=== PATIENT | male | born 1960 | race Caucasian/White ===

== ENCOUNTER 2022-08-26 11:12 | Inpatient (IN) | payer OTHER ==
[2022-08-26] MEDS ORDERED: SODIUM CHLORIDE 0.9% 1,000 ML IV STA (11:21)
[2022-08-26 12:03] LABS: Basophils % (A) 1 %; Eosinophils # (A) 0.1 k/uL (0-0.7); Eosinophils % (A) 2 %; HCT 38.5 % (39.0-53.0); HGB 12.9 gm/dL (13.0-17.5); Lymphocytes % (A) 19 %; MCH 36.5 pg (25.0-35.0); MCHC 33.6 g/dL (31.0-37.0); MCV 108.5 fL (80.0-100.0); Macrocytosis Marked; Mean Platelet Volume 7.8; Monocytes # (A) 0.6 k/uL (0-1.0); Monocytes % (A) 11 %; Neutrophils # (A) 3.4 k/uL (1.3-7.7); Neutrophils % (A) 64 %; Platelet Count 272 k/uL (150-450); RBC 3.55 m/uL (4.30-5.90); RDW 15.2 % (11.5-15.5); WBC 5.3 k/uL (3.8-10.6)
[2022-08-26 12:07] LABS: Appearance,Urine Clear (Clear); Bilirubin,Urine Negative (Negative); Blood,Urine Negative (Negative); Color,Urine Yellow; Glucose,Urine (UA) Negative (Negative); Ketones,Urine Negative (Negative); Leukocyte Esterase,Urine Negative (Negative); Nitrite,Urine Negative (Negative); PH, Urine 5.5 (5.0-8.0); Protein,Urine Negative (Negative); Specific Gravity,Urine 1.021 (1.001-1.035)
[2022-08-26 12:14] LABS: ALT 134 U/L (4-49); AST 178 U/L (17-59); African American GFR (CKD) >90 (>60 ml/min/1.73 sqM); Albumin 4.2 g/dL (3.5-5.0); Alkaline Phosphatase 83 U/L (38-126); Anion Gap 6 mmol/L; Blood Urea Nitrogen 15 mg/dL (9-20); Carbon Dioxide 30 mmol/L (22-30); Chloride 102 mmol/L (98-107); Glucose 74 mg/dL (74-99); Non-African American GFR(CKD) >90 (>60 ml/min/1.73 sqM); Potassium 3.7 mmol/L (3.5-5.1); Sodium 138 mmol/L (137-145); Total Bilirubin 0.7 mg/dL (0.2-1.3)
--- NOTE | 2022-08-26 12:23 | XR ---
EXAMINATION TYPE: XR chest 1V portable DATE OF EXAM: 08/26/2022 Comparison: None Clinical History: 62-year-old male dizzy Findings: Heart borderline to mildly enlarged. Aorta and pulmonary vasculature within normal limits. No consoli dation or pleural effusion seen. Impression: Borderline to mild cardiomegaly. Otherwise, no definite acute process.
--- NOTE | 2022-08-26 12:27 | CT ---
EXAMINATION TYPE: CT brain wo con DATE OF EXAM: 08/26/2022 COMPARISON: None HISTORY: 62-year-old male Weakness, with dizziness, blood pressure issues TECHNIQUE: Examination was done in axial plane without intravenous contrast. Coronal and sagittal r econstructions performed. CT DLP: 1170.4 mGycm Automated exposure control for dose reduction was used. FINDINGS: There is no evidence of acute intracranial hemorrhage, acute ischemic changes, mass, mass-effect, or extra-axial fluid collection. There is no effacement of cerebral sulci or basal subarachnoid cister ns. There is no hydrocephalus. There is no midline shift. Barrett-white matter distinction is preserv ed. Moderate volume loss overlying the bilateral cerebral convexities. Secondary mild ventricular promine nce. Mild patchy white matter hypodensities in the cerebral hemispheres. Limited assessment posterior cranial fossa due to skull base artifacts. No gross abnormal ECG. Rightward nasal septal deviation. Mastoid air cells and paranasal sinuses otherwise clear. Orbits and globes are intact. IMPRESSION: Moderate volume loss overlying the bilateral cerebral convexities. Mild burden of chronic small vesse l ischemic disease. No acute intracranial abnormality seen.
--- NOTE | 2022-08-26 14:20 | ED ---
Dizziness HPI - General Chief Complaint: Dizziness Stated Complaint: Blood Pressure Problems Time Seen by Provider: 08/26/22 11:15 Source: patient Mode of arrival: EMS Limitations: no limitations - History of Present Illness Initial Comments: Patient complains of lightheadedness and near-syncope. His symptoms come and go but they are getting worse. He has no chest pain or pressure or tightness. He has no nausea or vomiting. He has no palpitations. He has no focal weakness. He wasn't doing anything when this began. Nothing specifically makes the symptoms better or worse. - Related Data Allergies Allergy/AdvReac Type Severity Reaction Status Date / Time No Known Allergies Allergy Verified 08/26/22 11:21 Review of Systems ROS Statement: Those systems with pertinent positive or pertinent negative responses have been documented in the HPI. ROS Other: All systems not noted in ROS Statement are negative. Past Medical History Past Medical History: Hyperlipidemia, Hypertension, Seizure Disorder History of Any Multi-Drug Resistant Organisms: None Reported Additional Past Surgical History / Comment(s): heart ablation Past Psychological History: No Psychological Hx Reported Smoking Status: Current every day smoker Past Alcohol Use History: Abuse Past Drug Use History: None Reported General Exam Limitations: no limitations General appearance: alert, in no apparent distress Head exam: Present: atraumatic, normocephalic, normal inspection Eye exam: Present: normal appearance, PERRL, EOMI. Absent: scleral icterus, c onjunctival injection, periorbital swelling ENT exam: Present: normal exam, mucous membranes moist Neck exam: Present: normal inspection. Absent: tenderness, meningismus, lymphadenopathy Respiratory exam: Present: normal lung sounds bilaterally. Absent: respiratory distress, wheezes, rales, rhonchi, stridor Cardiovascular Exam: Present: regular rate, normal rhythm, normal heart sounds. Absent: systolic murmur, diastolic murmur, rubs, gallop, clicks GI/Abdominal exam: Present: soft, normal bowel sounds. Absent: distended, tenderness, guarding, rebound, rigid Extremities exam: Present: normal inspection, full ROM, normal capillary refill. Absent: tenderness, pedal edema, joint swelling, calf tenderness Back exam: Present: normal inspection Neurological exam: Present: alert, oriented X3, CN II-XII intact Psychiatric exam: Present: normal affect, normal mood Skin exam: Present: warm, dry, intact, normal color. Absent: rash Course Vital Signs 08/26/22 08/26/22 11:18 11:41 Temperature 98 F Pulse Rate 48 L 48 L Respiratory 16 20 Rate Blood Pressure 124/84 124/68 O2 Sat by Pulse 98 98 Oximetry EKG Findings - EKG Comments: EKG Findings:: Twelve-lead EKG interpreted by me shows ventricular rate 50 bpm, normal AR interval, normal QRS complex, no ST elevation or depression, interpreted by me as sinus bradycardia. Medical Decision Making - Medical Decision Making Patient presents with lightheadedness and near syncope. 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 Laboratory studies are interpreted by me as normal left lites, normal kidney functioning, normal CBC. CT of the brain was independently reviewed and read by me showing no acute intracranial bleed or mass. 1 view chest x-ray was independently reviewed and read by me showing no acute pneumonia. I reevaluated patient. He is very bradycardic. He has intermittent episodes of lightheadedness. I have placed a consultation to cardiology. Patient will be admitted to the hospital. - Lab Data Result diagrams: 08/26/22 11:40 08/26/22 11:40 Lab Results 08/26/22 08/26/22 08/26/22 Range/Units 11:40 11:40 11:40 WBC 5.3 (3.8-10.6) k/uL RBC 3.55 L (4.30-5.90) m/uL Hgb 12.9 L (13.0-17.5) gm/dL Hct 38.5 L (39.0-53.0) % MCV 108.5 H (80.0-100.0) fL MCH 36.5 H (25.0-35.0) pg MCHC 33.6 (31.0-37.0) g/dL RDW 15.2 (11.5-15.5) % Plt Count 272 (150-450) k/uL MPV 7.8 Neutrophils % 64 % Lymphocytes % 19 % Monocytes % 11 % Eosinophils % 2 % Basophils % 1 % Neutrophils # 3.4 (1.3-7.7) k/uL Lymphocytes # 1.0 (1.0-4.8) k/uL Monocytes # 0.6 (0-1.0) k/uL Eosinophils # 0.1 (0-0.7) k/uL Basophils # 0.0 (0-0.2) k/uL Macrocytosis Marked A Sodium 138 (137-145) mmol/L Potassium 3.7 (3.5-5.1) mmol/L Chloride 102 (98-107) mmol/L Carbon Dioxide 30 (22-30) mmol/L Anion Gap 6 mmol/L BUN 15 (9-20) mg/dL Creatinine 0.59 L (0.66-1.25) mg/dL Est GFR (CKD-EPI)AfAm >90 (>60 ml/min/1.73 sqM) Est GFR (CKD-EPI)NonAf >90 (>60 ml/min/1.73 sqM) Glucose 74 (74-99) mg/dL Calcium 9.0 (8.4-10.2) mg/dL Total Bilirubin 0.7 (0.2-1.3) mg/dL AST 178 H (17-59) U/L ALT 134 H (4-49) U/L Alkaline Phosphatase 83 (38-126) U/L Troponin I <0.012 (0.000-0.034) ng/mL Total Protein 7.0 (6.3-8.2) g/dL Albumin 4.2 (3.5-5.0) g/dL Urine Color Urine Appearance (Clear) Urine pH (5.0-8.0) Ur Specific [place] (1.001-1.035) Urine Protein (Negative) Urine Glucose (UA) (Negative) Urine Ketones (Negative) Urine Blood (Negative) Urine Nitrite (Negative) Urine Bilirubin (Negative) Urine Urobilinogen (<2.0) mg/dL Ur Leukocyte Esterase (Negative) 08/26/22 Range/Units 11:48 WBC (3.8-10.6) k/uL RBC (4.30-5.90) m/uL Hgb (13.0-17.5) gm/dL Hct (39.0-53.0) % MCV (80.0-100.0) fL MCH (25.0-35.0) pg MCHC (31.0-37.0) g/dL RDW (11.5-15.5) % Plt Count (150-450) k/uL MPV Neutrophils % % Lymphocytes % % Monocytes % % Eosinophils % % Basophils % % Neutrophils # (1.3-7.7) k/uL Lymphocytes # (1.0-4.8) k/uL Monocytes # (0-1.0) k/uL Eosinophils # (0-0.7) k/uL Basophils # (0-0.2) k/uL Macrocytosis Sodium (137-145) mmol/L Potassium (3.5-5.1) mmol/L Chloride (98-107) mmol/L Carbon Dioxide (22-30) mmol/L Anion Gap mmol/L BUN (9-20) mg/dL Creatinine (0.66-1.25) mg/dL Est GFR (CKD-EPI)AfAm (>60 ml/min/1.73 sqM) Est GFR (CKD-EPI)NonAf (>60 ml/min/1.73 sqM) Glucose (74-99) mg/dL Calcium (8.4-10.2) mg/dL Total Bilirubin (0.2-1.3) mg/dL AST (17-59) U/L ALT (4-49) U/L Alkaline Phosphatase (38-126) U/L Troponin I (0.000-0.034) ng/mL Total Protein (6.3-8.2) g/dL Albumin (3.5-5.0) g/dL Urine Color Yellow Urine Appearance Clear (Clear) Urine pH 5.5 (5.0-8.0) Ur Specific [place] 1.021 (1.001-1.035) Urine Protein Negative (Negative) Urine Glucose (UA) Negative (Negative) Urine Ketones Negative (Negative) Urine Blood Negative (Negative) Urine Nitrite Negative (Negative) Urine Bilirubin Negative (Negative) Urine Urobilinogen 2.0 (<2.0) mg/dL Ur Leukocyte Esterase Negative (Negative) Disposition Clinical Impression: Bradycardia Disposition: ADMITTED IP TO THIS HOSP Condition: Fair Is patient prescribed a controlled substance at d/c from ED?: No Referrals: Nonstaff,Physician [Primary Care Provider] - 1-2 days
[2022-08-26] MEDS ORDERED: NALOXONE 0.4 MG/ML 1 ML VIAL IV PRN (14:25)
[2022-08-26] MEDS ORDERED: ONDANSETRON 4 MG/2 ML VIAL IVP PRN (14:25)
[2022-08-26] MEDS ORDERED: CALCIUM CARBONATE 500 MG CHEWABLE PO PRN (14:25)
[2022-08-26] MEDS ORDERED: MAG HYDROX/AL HYDROX/SIMETH 30 ML CUP PO PRN (17:53)
[2022-08-26] MEDS ORDERED: ONDANSETRON 4 MG TAB PO PRN (17:53)
[2022-08-26] MEDS ORDERED: hydrALAZINE HCL 20 MG/ML 1 ML VIAL IVP PRN (18:06)
[2022-08-26] MEDS: SODIUM CHLORIDE 0.9% 1,000 ML IV SCH (18:45)
[2022-08-26] MEDS: DILTIAZEM ORAL 60 MG TAB PO SCH (21:15)
[2022-08-26] MEDS: QUEtiapine 25 MG TAB PO SCH (21:16)
[2022-08-26] MEDS: ATORVASTATIN 20 MG TAB PO SCH (21:16)
[2022-08-27] MEDS: SODIUM CHLORIDE 0.9% 1,000 ML IV SCH ×2 (04:54→17:35)
[2022-08-27] MEDS: DILTIAZEM ORAL 60 MG TAB PO SCH ×3 (09:10→09:25)
[2022-08-27] MEDS: ESCITALOPRAM 20 MG TAB PO SCH (09:17)
[2022-08-27] MEDS: FOLIC ACID 1 MG TAB PO SCH (09:17)
[2022-08-27] MEDS: THIAMINE 100 MG TAB PO SCH (09:17)
[2022-08-27] MEDS: MULTIVITAMINS, THERA 1 EACH TAB PO SCH (09:17)
--- NOTE | 2022-08-27 11:29 | P.CRDCN ---
History of Present Illness Consult date: 08/27/22 Reason for Consult (text): Bradycardia, hypertension History of present illness: History of present illness: This is a 62-year-old male with past history of SVT status post ablation done at [facility] with subsequent episode of SVT 2, hypertension, alcohol abuse. We have been asked to see the patient regarding hypertension and bradycardia. Patient is currently at [place] for alcohol rehabilitation and lives in the [facility]. His last oral intake was 3 weeks ago. Patient states that around 3:30 in the morning he had a headache and went up to the nursing desk asked for his blood pressure to be checked which came back at 157/111. He was given Catapres 0.2 mg and Motrin and went back to sleep. He woke up again at 9:30 and he was feeling dizzy and disoriented and his blood pressure was 80/50. He was then sent into [facility] emergency center for evaluation. Patient also states he has had some left-sided chest pain that he feels when he takes a deep breath and is positional. He denies any injury to his chest. Telemetry is been a sinus rhythm 42-68. Blood pressure this morning is well controlled 135/87. Orthostatic vital signs negative. Patient quit smoking 27 years ago. His last alcohol intake was 3 weeks ago. EKG sinus bradycardia at 50 bpm Chest x-ray: Borderline to mild cardiomegaly. No definite acute process WBC 5.3, hemoglobin 12.9, platelet count 272. Potassium 3.7, BUN 15 and creatinine 0.5. Troponin negative 3. TSH 1.450. Home cardiac medications atorvastatin 20 mg at bedtime, clonidine 0.10.3 mg every 4 hours when necessary, Cardizem 60 mg twice daily, hydrochlorothiazide 12.5 mg before breakfast Review Of Systems: At the time of my evaluation: Constitutional: No fever, no chills. No weakness, fatigue or lethargy. EENT: No headache. No dizziness. Lungs: No shortness of breath, cough, no sputum production. No wheezing. Cardiovascular: No chest pain, no lower extremity edema. No palpitations. No paroxysmal nocturnal dyspnea. No orthopnea. No lightheadedness or dizziness. No syncopal episodes. Abdominal: No abdominal pain. No nausea, vomiting. No diarrhea. No constipation. No bloody or tarry stools. Musculoskeletal: No myalgias. No muscle weakness, no frequent falls. No back pain. No neck pain. Integumentary: No wounds. No rash. No unusual bruising. Neurologic: No aphasia. No facial droop. No change in mentation. No head injury. No headache. Psychiatric: No depression. No anxiety. Endocrine: No abnormal blood sugars. Physical examination: Gen: This is a 62-year-old male patient resting in the bed and appears to be comfortable and in no acute distress VS: reviewed HEENT: Head is atraumatic, normocephalic. Pupils equal, round. Sclerae is anicteric. NECK: Supple. No JVD. No lymphadenopathy. No thyromegaly. LUNGS: Clear to auscultation. No wheezes or rhonchi. No intercostal retractions. HEART: Regular rate and rhythm. No murmur. ABDOMEN: Soft. Bowel sounds are present. No masses. No tenderness. EXTREMITIES: No pedal edema. No calf tenderness. NEUROLOGICAL: Patient is awake, alert and oriented x3. Cranial nerves 2 through 12 are grossly intact. Assessment: Hypotension following Catapres administration Bradycardia, asymptomatic SVT status post ablation 2 years ago at [facility] Hyperlipidemia Alcohol abuse Plan: Change to Cardizem 30 mg 3 times daily Continue other cardiac medications Obtain 2-D echocardiogram and Doppler study to assess cardiac structure and function Further recommendations to follow based upon clinical course Thank you kindly for this consultation. Nurse practitioner note has been reviewed, I agree with documented findings and plan of care. Patient was seen and examined. Past Medical History Past Medical History: Hyperlipidemia, Hypertension, Seizure Disorder, Sleep Apnea/CPAP/BIPAP History of Any Multi-Drug Resistant Organisms: None Reported Past Surgical History: Tonsillectomy Additional Past Surgical History / Comment(s): heart ablation Past Anesthesia/Blood Transfusion Reactions: No Reported Reaction Smoking Status: Former smoker Medications and Allergies Home Medications Medication Instructions Recorded Confirmed Type Acetaminophen Tab [Tylenol] 650 mg PO Q4H PRN 08/26/22 08/26/22 History Atorvastatin [Lipitor] 20 mg PO HS 08/26/22 08/26/22 History Calcium Carb/Mag Ox/Zinc Sulf 1 tab PO TID PRN 08/26/22 08/26/22 History [Etm-Kml-Cnxe 334-134-5 mg Tab] Chlorpheniramine Maleate 4 mg PO Q4H PRN 08/26/22 08/26/22 History [Chlor-Trimeton] Escitalopram [Lexapro] 20 mg PO DAILY 08/26/22 08/26/22 History Folic Acid 1 mg PO DAILY 08/26/22 08/26/22 History Ibuprofen [Motrin Ib] 600 mg PO Q6H PRN 08/26/22 08/26/22 History LORazepam [Ativan] See Taper PO DIRECTED 08/26/22 08/26/22 History Multivitamins, Thera [Multivitamin 1 tab PO DAILY 08/26/22 08/26/22 History (formulary)] Mylanta 30 ml PO Q4H PRN 08/26/22 08/26/22 History QUEtiapine FUMARATE [SEROquel] 25 mg PO HS 08/26/22 08/26/22 History Thiamine [Vitamin B-1] 100 mg PO DAILY 08/26/22 08/26/22 History cloNIDine HCL [Catapres] 0.1 - 0.3 mg PO Q4H PRN 08/26/22 08/26/22 History dilTIAZem HCL 60 mg PO BID 08/26/22 08/26/22 History hydroCHLOROthiazide 12.5 mg PO AC-BRKFST 08/26/22 08/26/22 History ondansetron HCL [Zofran] 8 mg PO Q6H PRN 08/26/22 08/26/22 History Allergies Allergy/AdvReac Type Severity Reaction Status Date / Time No Known Allergies Allergy Verified 08/26/22 14:35 Physical Exam Vitals: Vital Signs Temp Pulse Pulse Resp BP BP BP 08/27/22 06:13 146/94 152/93 08/27/22 04:00 97.7 F 53 L 15 08/27/22 00:00 97.6 F 56 L 15 08/26/22 21:31 08/26/22 21:25 98.1 F 65 16 08/26/22 21:09 98.1 F 65 16 08/26/22 20:25 48 L 16 165/89 08/26/22 15:21 42 L 16 130/58 08/26/22 14:21 50 L 16 138/58 08/26/22 13:21 68 16 142/68 08/26/22 12:21 48 L 16 135/68 08/26/22 11:41 48 L 20 124/68 08/26/22 11:18 98 F 48 L 16 124/84 BP Pulse Ox FiO2 08/27/22 06:13 135/87 08/27/22 04:00 141/89 96 08/27/22 00:00 113/69 98 08/26/22 21:31 98 21 08/26/22 21:25 153/97 96 08/26/22 21:09 153/97 96 08/26/22 20:25 98 08/26/22 15:21 98 08/26/22 14:21 98 08/26/22 13:21 98 08/26/22 12:21 98 08/26/22 11:41 98 08/26/22 11:18 98 Intake and Output 08/26/22 08/27/22 08/27/22 22:59 06:59 14:59 Intake Total 1440 Output Total 540 Balance -540 1440 Intake: Intake, IV Titration 900 Amount Sodium Chloride 0.9% 1, 900 000 ml @ 75 mls/hr IV . [id number] [facility] Rx#:[id number] Oral 540 Output: Urine 540 Other: Voiding Method Toilet Toilet Weight 73.482 kg Results 08/26/22 11:40 08/26/22 11:40 Cardiac Enzymes 08/26/22 08/26/22 08/26/22 Range/Units 11:40 11:40 15:50 AST 178 H (17-59) U/L Troponin I <0.012 <0.012 (0.000-0.034) ng/mL 08/26/22 Range/Units 18:55 AST (17-59) U/L Troponin I <0.012 (0.000-0.034) ng/mL CBC 08/26/22 Range/Units 11:40 WBC 5.3 (3.8-10.6) k/uL RBC 3.55 L (4.30-5.90) m/uL Hgb 12.9 L (13.0-17.5) gm/dL Hct 38.5 L (39.0-53.0) % Plt Count 272 (150-450) k/uL Comprehensive Metabolic Panel 08/26/22 Range/Units 11:40 Sodium 138 (137-145) mmol/L Potassium 3.7 (3.5-5.1) mmol/L Chloride 102 (98-107) mmol/L Carbon Dioxide 30 (22-30) mmol/L BUN 15 (9-20) mg/dL Creatinine 0.59 L (0.66-1.25) mg/dL Glucose 74 (74-99) mg/dL Calcium 9.0 (8.4-10.2) mg/dL AST 178 H (17-59) U/L ALT 134 H (4-49) U/L Alkaline Phosphatase 83 (38-126) U/L Total Protein 7.0 (6.3-8.2) g/dL Albumin 4.2 (3.5-5.0) g/dL Current Medications Generic Name Dose Route Start Last Admin Trade Name Freq PRN Reason Stop Dose Admin Acetaminophen 650 mg 08/26/22 14:25 Acetaminophen Tab 325 Mg Tab PO Q6HR PRN Mild Pain or Fever > 100.5 Al Hydroxide/Mg Hydroxide 30 ml 08/26/22 17:53 Mag Hydrox/Al Hydrox/Simeth 30 Ml Cup PO Q4H PRN GI Upset Atorvastatin Calcium 20 mg 08/26/22 21:00 08/26/22 21:16 Atorvastatin 20 Mg Tab PO 20 mg HS [facility] Administration Calcium Carbonate/Glycine 1,000 mg 08/26/22 14:25 Calcium Carbonate 500 Mg Chewable PO Q4HR PRN Dyspepsia Diltiazem HCl 60 mg 08/26/22 21:00 08/26/22 21:15 Diltiazem Oral 60 Mg Tab PO 60 mg BID VERONA Administration Escitalopram Oxalate 20 mg 08/27/22 09:00 Escitalopram 20 Mg Tab PO DAILY [facility] Folic Acid 1 mg 08/27/22 09:00 Folic Acid 1 Mg Tab PO DAILY [facility] Hydralazine HCl 10 mg 08/26/22 18:06 Hydralazine Hcl 20 Mg/Ml 1 Ml Vial IVP Q4HR PRN Blood Pressure - High Sodium Chloride 1,000 mls @ 75 mls/hr 08/26/22 15:30 08/27/22 04:54 Saline 0.9% IV Not Given .[id number] [facility] Multivitamins 1 each 08/27/22 09:00 Multivitamins, Thera 1 Each Tab PO DAILY [facility] Naloxone HCl 0.2 mg 08/26/22 14:25 Naloxone 0.4 Mg/Ml 1 Ml Vial IV Q2M PRN Opioid Reversal Ondansetron HCl 4 mg 08/26/22 14:25 Ondansetron 4 Mg/2 Ml Vial IVP Q8HR PRN Nausea And Vomiting Ondansetron HCl 8 mg 08/26/22 17:53 Ondansetron 4 Mg Tab PO Q6H PRN Nausea Quetiapine Fumarate 25 mg 08/26/22 21:00 08/26/22 21:16 Quetiapine 25 Mg Tab PO 25 mg HS [facility] Administration Temazepam 15 mg 08/26/22 14:25 Temazepam 15 Mg Cap PO HS PRN Insomnia Thiamine HCl 100 mg 08/27/22 09:00 Thiamine 100 Mg Tab PO DAILY [facility] Intake and Output 08/26/22 08/27/22 08/27/22 22:59 06:59 14:59 Intake Total 1440 Output Total 540 Balance -540 1440 Intake: Intake, IV Titration 900 Amount Sodium Chloride 0.9% 1, 900 000 ml @ 75 mls/hr IV . [id number] [facility] Rx#:[id number] Oral 540 Output: Urine 540 Other: Voiding Method Toilet Toilet Weight 73.482 kg 08/26/22 11:40 08/26/22 11:40
--- NOTE | 2022-08-27 11:49 | P.CNNES ---
History of Present Illness Consult date: 08/27/22 Requesting physician: Shilo Rapp Reason for Consult: abnormal CT, near syncope History of Present Illness: This is a 62-year-old gentleman who presented emergency department because of lightheadedness and near syncope. Patient stated that he was at [facility] because of history of significant alcohol use. He stated that his blood pressure was elevated and then he does not remember the number and he was given medication then later his blood pressure was rechecked and it was 80s over 50s and he felt he was off. He denies passing out. Denies any headache, focal weakness, numbness. He does have history of significant alcohol use but he stated that the his mother feels he has more issues with his drinking. Denies any seizure-like activity that was reported to him yesterday. Denies any tongue bite, urinary bowel incontinence. Denies of any headache. Home medication some of him is potassium 60 mg a tablet twice a day, Lexapro, Seroquel. Of note he stated that he has only one seizure-like activity in the past and that was due to medication withdrawal since he did not have medication for one month and that was waiting in the past. Some other workup during this hospital visit consisted of: Is afebrile during his hospital visit Heart rates is high 40's to 50s Orthostatic vitals is negative. Supine blood pressure is 135/87, sitting is 146/94 and standing is 152 over the 93. His chemistry panel is 18 ALT is elevated mildly of 178 AST and ALT 134. Otherwise the patient's serum glucose, calcium, sodium and TSH are within normal limits. CT of the head is reported as moderate volume loss overlying the bilateral cerebral convexity. Mild burden of chronic small vessel ischemic disease. No acute intracranial abnormality seen. I personally reviewed the CT of the head and there is no acute or subacute ischemia and there is no mass effect and there is no bleed. Patient has bilateral frontal atrophy and questionably the more atrophy than age. EKG is reported as sinus bradycardia. Left axis deviation. Review of Systems Review of system: The 12 point system was reviewed and apparent positive and negative per HPI. Past Medical History Past Medical History: Hyperlipidemia, Hypertension, Seizure Disorder, Sleep Apnea/CPAP/BIPAP History of Any Multi-Drug Resistant Organisms: None Reported Past Surgical History: Tonsillectomy Additional Past Surgical History / Comment(s): heart ablation Past Anesthesia/Blood Transfusion Reactions: No Reported Reaction Smoking Status: Former smoker Medications and Allergies Home Medications Medication Instructions Recorded Confirmed Type Acetaminophen Tab [Tylenol] 650 mg PO Q4H PRN 08/26/22 08/26/22 History Atorvastatin [Lipitor] 20 mg PO HS 08/26/22 08/26/22 History Calcium Carb/Mag Ox/Zinc Sulf 1 tab PO TID PRN 08/26/22 08/26/22 History [Rgl-Hrc-Fcdm 334-134-5 mg Tab] Chlorpheniramine Maleate 4 mg PO Q4H PRN 08/26/22 08/26/22 History [Chlor-Trimeton] Escitalopram [Lexapro] 20 mg PO DAILY 08/26/22 08/26/22 History Folic Acid 1 mg PO DAILY 08/26/22 08/26/22 History Ibuprofen [Motrin Ib] 600 mg PO Q6H PRN 08/26/22 08/26/22 History LORazepam [Ativan] See Taper PO DIRECTED 08/26/22 08/26/22 History Multivitamins, Thera [Multivitamin 1 tab PO DAILY 08/26/22 08/26/22 History (formulary)] Mylanta 30 ml PO Q4H PRN 08/26/22 08/26/22 History QUEtiapine FUMARATE [SEROquel] 25 mg PO HS 08/26/22 08/26/22 History Thiamine [Vitamin B-1] 100 mg PO DAILY 08/26/22 08/26/22 History cloNIDine HCL [Catapres] 0.1 - 0.3 mg PO Q4H PRN 08/26/22 08/26/22 History dilTIAZem HCL 60 mg PO BID 08/26/22 08/26/22 History hydroCHLOROthiazide 12.5 mg PO AC-BRKFST 08/26/22 08/26/22 History ondansetron HCL [Zofran] 8 mg PO Q6H PRN 08/26/22 08/26/22 History Allergies Allergy/AdvReac Type Severity Reaction Status Date / Time No Known Allergies Allergy Verified 08/26/22 14:35 Physical Examination - Vital Signs Vital Signs: Vital Signs Temp Pulse Pulse Resp BP BP BP 08/27/22 09:09 98.2 F 54 L 16 158/93 08/27/22 06:13 146/94 152/93 08/27/22 04:00 97.7 F 53 L 15 08/27/22 00:00 97.6 F 56 L 15 08/26/22 21:31 08/26/22 21:25 98.1 F 65 16 08/26/22 21:09 98.1 F 65 16 08/26/22 20:25 48 L 16 165/89 08/26/22 15:21 42 L 16 130/58 08/26/22 14:21 50 L 16 138/58 08/26/22 13:21 68 16 142/68 08/26/22 12:21 48 L 16 135/68 08/26/22 11:41 48 L 20 124/68 08/26/22 11:18 98 F 48 L 16 124/84 BP Pulse Ox FiO2 08/27/22 09:09 98 08/27/22 06:13 135/87 08/27/22 04:00 141/89 96 08/27/22 00:00 113/69 98 08/26/22 21:31 98 21 08/26/22 21:25 153/97 96 08/26/22 21:09 153/97 96 08/26/22 20:25 98 08/26/22 15:21 98 08/26/22 14:21 98 08/26/22 13:21 98 08/26/22 12:21 98 08/26/22 11:41 98 08/26/22 11:18 98 Intake and Output 08/26/22 08/27/22 08/27/22 22:59 06:59 14:59 Intake Total 1440 Output Total 540 Balance -540 1440 Intake: Intake, IV Titration 900 Amount Sodium Chloride 0.9% 1, 900 000 ml @ 75 mls/hr IV . [id number] [facility] Rx#:[id number] Oral 540 Output: Urine 540 Other: Voiding Method Toilet Toilet Weight 73.482 kg GENERAL: The patient is lying in bed and is not in acute distress. CHEST: The heart rate is regular rate rhythm. No murmurs to auscultation. LUNG: Clear to auscultation bilaterally no wheezing noted throughout. Not labored breathing. ABDOMEN/GI: Bowel sounds present in all 4 quadrants. No tenderness to palpation throughout. NEUROLOGICAL: Higher mental function: The patient is awake, alert, oriented to self, place and time. Patient is following commands. No aphasia and no neglect. Cranial nerves: The pupils are round, equal and reactive to light and accommo dation. Visual gallardo are full to confrontation throughout. Extraocular movement is intact no nystagmus is noted. Facial sensation is normal to touch throughout. The facial strength is normal throughout. Hearing is normal bilaterally to hand rub. Tongue is midline and moved [id number] without any difficulty. No dysarthria is noted. Shoulder shrug is normal bilaterally. Motor: The strength is 5 over 5 throughout. Normal tone and bulk. Cerebellum: Normal finger to nose bilaterally. Sensation: Sensation is normal to touch throughout. Reflexes (right/left): 2+ throughout. Plantars are downgoing bilaterally. Results - Laboratory Findings CBC and BMP: 08/26/22 11:40 08/26/22 11:40 Abnormal Lab Findings: Abnormal Labs 08/26/22 08/26/22 11:40 11:40 RBC 3.55 L Hgb 12.9 L Hct 38.5 L MCV 108.5 H MCH 36.5 H Macrocytosis Marked A Creatinine 0.59 L AST 178 H ALT 134 H Assessment and Plan Assessment: Near syncope and it appears possibly due to his hypotensive episode (at [facility] heart blood pressure was 80's/50's and thinks was given medication according to him since it was elevated) and possible symptomatic bradycardia Possibly symptomatic bradycardia History of reported seizures disorder one episode and stated due to medication withdrawal. Hypertension Hyperlipidemia Alcohol use Plan: I ordered a routine EEG to rule out any active seizures or epileptiform discharges. CT of the head is reported as moderate volume loss overlying the bilateral cerebral convexity. Mild burden of chronic small vessel ischemic disease. No acute intracranial abnormality seen. I personally reviewed the CT of the head and there is no acute or subacute ischemia and there is no mass effect and there is no bleed. Patient has bilateral frontal atrophy and questionably the more atrophy than age. There are many factors possibly that can cause atrophy and one is due to his significant alcohol use. Workup as outpatient neurologist. Nothing urgent as an inpatient. 2-D echo is a ordered and cardiology is consulted Continue thiamine 100mg daily. We'll defer the rest of medical management to the primary team The plan is discussed with patient and his nurse. Thank you for the consultation Time with Patient: Greater than 30
[2022-08-27] MEDS: DILTIAZEM ORAL 30 MG TAB PO SCH ×3 (12:11→21:58)
--- NOTE | 2022-08-27 19:51 | EEG ---
ELECTROENCEPHALOGRAM REPORT CLINICAL HISTORY: This is a 62-year-old gentleman with near syncope at an outside facility. The video EEG is obtained to evaluate for seizure epileptiform activity. RELEVANT MEDICATIONS: The patient is not on any antiepileptic drugs. EEG TYPE: A routine 21-channel EEG is performed with video using the 10/20 electrode placement system. DESCRIPTION: Wakefulness is only obtained. During awake state, the posterior-dominant rhythm consists of uan-bo-ebhrgveg voltage of 8.5 to 9 hertz activity that is well modulated and well sustained. There is no physiological stage 2 sleep architecture. There is no focal slowing. Interictal and ictal is none. ACTIVATION PROCEDURE: Photic stimulation did not evoke a posterior driving response. There is no abnormality during the photic stimulation. Hyperventilation is not performed. CLINICAL INTERPRETATION: This is a normal routine EEG. There is no focal slowing, epileptiform discharge or seizure on the EEG. Clinical correlation is recommended. MMMIGUEL / TESSAN: [id number] /
[2022-08-27] MEDS: ATORVASTATIN 20 MG TAB PO SCH (20:18)
[2022-08-27] MEDS: QUEtiapine 25 MG TAB PO SCH (20:18)
--- NOTE | 2022-08-28 02:57 | PN ---
PROGRESS NOTE SUBJECTIVE: A 62-year-old white male. Neurology saw him. Cardiology saw him. We stopped his Catapres last night. Continues on the beta blockers. Heart rate and blood pressures are more stable now. He is less dizzy, pleuritic-type chest pain. OBJECTIVE: VITAL SIGNS: Temperature 98.2, pulse 58 to 61, blood pressure is 140s to 160s over 80s to 90s. CARDIOVASCULAR: S1, S2. LUNGS: Transmitted upper sounds. HEMATOLOGY: Negative Homans. PSYCHIATRIC: Fair mood and affect. LABORATORY DATA: Labs reviewed and include, hemoglobin is 10.9, creatinine is 0.59. Liver enzymes elevated at 170, 134. Alkaline phosphatase is negative. Troponins are negative x3. Elevated liver enzymes of unclear etiology. Right-sided chest pain. EEG, Neurology, Cardiology has been consulted. Please see further orders check hepatitis panel. Prognosis guarded. MMODL / IJN: [id number] /
[2022-08-28 06:53] LABS: Basophils % (A) 1 %; Eosinophils # (A) 0.1 k/uL (0-0.7); Eosinophils % (A) 3 %; HCT 39.1 % (39.0-53.0); HGB 13.4 gm/dL (13.0-17.5); Lymphocytes # (A) 1.3 k/uL (1.0-4.8); Lymphocytes % (A) 26 %; MCH 35.7 pg (25.0-35.0); MCHC 34.3 g/dL (31.0-37.0); MCV 104.1 fL (80.0-100.0); Macrocytosis Slight; Mean Platelet Volume 7.8; Monocytes # (A) 0.6 k/uL (0-1.0); Monocytes % (A) 13 %; Neutrophils # (A) 2.7 k/uL (1.3-7.7); Neutrophils % (A) 55 %; Platelet Count 245 k/uL (150-450); RBC 3.76 m/uL (4.30-5.90); RDW 14.3 % (11.5-15.5); WBC 4.9 k/uL (3.8-10.6)
[2022-08-28 07:04] LABS: ALT 99 U/L (4-49); AST 105 U/L (17-59); African American GFR (CKD) >90 (>60 ml/min/1.73 sqM); Albumin 3.9 g/dL (3.5-5.0); Alkaline Phosphatase 81 U/L (38-126); Anion Gap 4 mmol/L; Blood Urea Nitrogen 10 mg/dL (9-20); Calcium 8.8 mg/dL (8.4-10.2); Carbon Dioxide 29 mmol/L (22-30); Chloride 105 mmol/L (98-107); Glucose 86 mg/dL (74-99); Non-African American GFR(CKD) >90 (>60 ml/min/1.73 sqM); Potassium 3.6 mmol/L (3.5-5.1); Sodium 138 mmol/L (137-145); Total Bilirubin 0.9 mg/dL (0.2-1.3); Total Protein 6.6 g/dL (6.3-8.2)
[2022-08-28] MEDS: SODIUM CHLORIDE 0.9% 1,000 ML IV SCH ×2 (08:34→22:37)
--- NOTE | 2022-08-28 08:34 | CA ---
Transthoracic Echo Report Name: Greg Wagner Age: 62 Gender: M : 1960 Exam Date: 08/27/2022 14:11 Exam Location: [facility] Ht (in): 72 Wt (lb): 175 Ordering Physician: Shilo Rapp MD Attending/Referring Phys: Waitress Emily Pearson RDCS Procedure CPT: Indications: HTN Cardiac Hx: Technical Quality: Fair Contrast 1: Total Dose (mL): Contrast 2: Total Dose (mL): MEASUREMENTS (Male / Female) Normal Values 2D ECHO LV Diastolic Diameter PLAX 4.8 cm 4.2 - 5.9 / 3.9 - 5.3 cm LV Systolic Diameter PLAX 3.0 cm IVS Diastolic Thickness 1.1 cm 0.6 - 1.0 / 0.6 - 0.9 cm LVPW Diastolic Thickness 1.3 cm 0.6 - 1.0 / 0.6 - 0.9 cm LV Relative Wall Thickness 0.5 RV Internal Dim ED PLAX 2.7 cm M-MODE Aortic Root Diameter MM 3.6 cm LA Systolic Diameter MM 4.5 cm LA Ao Ratio MM 1.2 AV Cusp Separation MM 2.0 cm DOPPLER AV Peak Velocity 160.1 cm/s AV Peak Gradient 10.3 mmHg AI Peak Velocity 439.1 cm/s AI Peak Gradient 77.1 mmHg AI Pressure Half Time 656.6 ms MR Peak Velocity 519.9 cm/s MR Peak Gradient 108.1 mmHg TR Peak Velocity 224.6 cm/s TR Peak Gradient 20.2 mmHg PV Peak Velocity 89.7 cm/s PV Peak Gradient 3.2 mmHg FINDINGS Left Ventricle Normal left ventricular systolic function with no obvious regional wall motion abnormalities. Left ventricular ejection fraction is estimated at 60-65 %. Right Ventricle Normal right ventricular size and function. Right Atrium Normal right atrial size. Left Atrium Mild left atrial dilatation. Mitral Valve Structurally normal mitral valve. Mild mitral regurgitation. Aortic Valve Trileaflet aortic valve. Mild aortic regurgitation. No aortic stenosis. Tricuspid Valve Structurally normal tricuspid valve. Mild tricuspid regurgitation. Pulmonic Valve Structurally normal pulmonic valve. Mild pulmonic regurgitation. Pericardium Normal pericardium. Aorta Normal size aortic root and proximal ascending aorta. CONCLUSIONS Normal LV size and systolic function with mild valvular abnormalities Previewed by: Dr. Kirk Perez MD (Electronically Signed) Final Date: 28 August 2022 08:33
[2022-08-28] MEDS: FOLIC ACID 1 MG TAB PO SCH (08:38)
[2022-08-28] MEDS: THIAMINE 100 MG TAB PO SCH (08:38)
[2022-08-28] MEDS: MULTIVITAMINS, THERA 1 EACH TAB PO SCH (08:38)
[2022-08-28] MEDS: ESCITALOPRAM 20 MG TAB PO SCH (08:38)
[2022-08-28] MEDS: DILTIAZEM ORAL 30 MG TAB PO SCH ×3 (08:38→21:19)
--- NOTE | 2022-08-28 08:42 | CT ---
EXAMINATION TYPE: CT chest abdomen wo con DATE OF EXAM: 08/28/2022 COMPARISON: Correlation ultrasound performed same day HISTORY: 62-year-old male Chest pain and symptomatic bradycardia TECHNIQUE: Contiguous axial scanning of the chest and abdomen without IV contrast. Coronal and sagitt al reconstructions performed. CT DLP: 512.6 mGycm Automated exposure control for dose reduction was used. FINDINGS: Chest: Heart normal size without pericardial effusion. LAD coronary calcifications are noted. Ascending aorta mildly aneurysmal at 4.1 cm. Conventional arch vessel branching anatomy. Mild ectasia of the lower descending thoracic aorta 2.6 cm. Prominent but not enlarged 1.2 cm subcarinal lymph node. Otherwise, no thoracic lymphadenopathy by CT size criteria. Mild centrilobular emphysema. Minimal biapical pleural parenchymal scarring. Mild subpleural strandy atelectasis in the lower lobes. Some strandy atelectasis inferior lingula. No consolidation or pleura l effusion. ABDOMEN: Liver enlarged at 20.2 cm. Slightly diminished attenuation suggesting some degree of fatty infiltrati on. Gallbladder is hydropic and 5.2 cm wide. There may be mild wall thickening though there is no sonia s urrounding inflammation. Tiny diverticulum of the duodenum projecting into the pancreatic head region. Bile duct mildly dilate d at 9 mm. Noncontrast appearance of the adrenal glands, kidneys, and pancreas otherwise show no gross abnormali ty. Spleen enlarged at 15.5 cm. No dilated bowel, free fluid, or free air. No mesenteric or retroperitoneal lymphadenopathy. Mild stool burden. No pericolonic inflammatory change. BONES: Mild to moderate spondylitic change lumbar spine. Mild degenerative disc disease mid to lower thoraci c spine. IMPRESSION: CHEST: 1. LAD CORONARY ARTERY CALCIFICATIONS. 2. MILD ANEURYSM ASCENDING AORTA AT 4.1 CM. 3. COPD WITH VERY MILD EMPHYSEMA. STRANDY AREAS OF ATELECTASIS. NO ACUTE PULMONARY PROCESS SEEN. ABDOMEN: 4. HYDROPIC GALLBLADDER CHANGE. THERE MAY BE MILD WALL THICKENING OF THE GALLBLADDER. NO SONIA SURROU NDING INFLAMMATION IS SEEN. CONSIDER HIDA SCAN TO ASSESS FOR POTENTIAL EARLY ACUTE CHOLECYSTITIS OR G ALLBLADDER DYSFUNCTION. 5. HOWEVER, THE BILE DUCT IS ALSO MILDLY DILATED AT 9 MM. CORRELATE WITH ALKALINE PHOSPHATASE AND BEREKET IRUBIN LEVELS TO EXCLUDE BILIARY OBSTRUCTION. 6. HEPATOMEGALY WITH SOME DEGREE OF UNDERLYING FATTY INFILTRATION OF THE LIVER. 7. SPLENOMEGALY AT 15.5 CM.
--- NOTE | 2022-08-28 08:46 | US ---
EXAMINATION TYPE: US abdomen complete DATE OF EXAM: 08/28/2022 COMPARISON: Same day CT CLINICAL HISTORY: 62-year-old male Elevated LFT's TECHNIQUE: Multiple sonographic images of the abdomen are obtained. FINDINGS: EXAM MEASUREMENTS: Liver Length: 18.8 cm Gallbladder Wall: 0.7 cm CBD: 0.9 cm Spleen: 14.0 cm Right Kidney: 11.4 x 5.6 x 6.0 cm Left Kidney: 12.2 x 6.5 x 5.4 cm Pancreas: Obscured by bowel gas Liver: Enlarged, heterogeneous Gallbladder: Lumen clear, distended with thickened wall. No sonia surrounding fluid. Evidence for sonographic Noland's sign: No CBD: Mildly dilated Spleen: Enlarged Right Kidney: Cortical thinning, no evidence of hydronephrosis. On image 38 of 57, there is a rounde d masslike area in the mid to lower pole cortex measuring 3.4 cm. Possible cortical lobulation. Mass considered less likely. 3 month follow-up ultrasound to reassess. Left Kidney: wnl Upper IVC: wnl Abd Aorta: Obscured by overlying bowel gas IMPRESSION: 1. Hepatomegaly and heterogeneous liver parenchyma, suspected fatty infiltration. 2. Hydropic gallbladder with wall thickening. No gallstones are seen. Sonographic Noland sign also re ported absent. Findings are equivocal. Consider HIDA scan if indicated. 3. In addition, dilated bile duct at 9 mm. Correlate with alkaline phosphatase and bilirubin levels t o exclude biliary obstruction. 4. Changes of chronic medical renal disease. No hydronephrosis. However, there is a rounded masslike area measuring 3.4 cm at the right mid to lower pole renal cortex. This could represent a mass but mo re likely a prominent contour lobulation. 3 month follow-up ultrasound to reassess this area.
--- NOTE | 2022-08-28 10:46 | P.PN ---
Subjective Progress Note Date: 08/28/22 The patient is seen at bedside and states he is doing much better. No syncopal or presyncopal episodes in our facility. Patient denies of any focal weakness, numbness. Objective - Vital Signs Vital signs: Vital Signs Temp 98.4 F 08/28/22 08:37 Pulse 60 08/28/22 08:37 Resp 16 08/28/22 08:37 BP 128/79 08/28/22 08:37 Pulse Ox 98 08/28/22 08:37 FiO2 21 08/26/22 21:31 Intake & Output 08/27/22 08/28/22 08/28/22 18:59 06:59 18:59 Intake Total 730 500 118 Balance 730 500 118 Intake: Oral 730 500 118 Other: Voiding Method Toilet Toilet # Voids 2 - Exam GENERAL: The patient is lying in bed and is not in acute distress. NEUROLOGICAL: Higher mental function: The patient is awake, alert, oriented to self, place and time. Patient is following commands. No aphasia and no neglect. Cranial nerves: The pupils are round, equal and reactive to light and accommodation. Visual gallardo are full to confrontation throughout. Extraocular movement is intact no nystagmus is noted. Facial sensation is normal to touch throughout. The facial strength is normal throughout. Hearing is normal bilaterally to hand rub. Tongue is midline and moved [id number] without any difficulty. No dysarthria is noted. Shoulder shrug is normal bilaterally. Motor: The strength is 5 over 5 throughout. Normal tone and bulk. Cerebellum: Normal finger to nose bilaterally. Sensation: Sensation is normal to touch throughout. Reflexes (right/left): 2+ throughout. Plantars are downgoing bilaterally. Some other workup during this hospital visit consisted of: Orthostatic vitals is negative. Supine blood pressure is 135/87, sitting is 1 46/94 and standing is 152 over the 93. His chemistry panel is 18 ALT is elevated mildly of 178 AST and ALT 134. Otherwise the patient's serum glucose, calcium, sodium and TSH are within normal limits. TSH: 1.45 CT of the head is reported as moderate volume loss overlying the bilateral cerebral convexity. Mild burden of chronic small vessel ischemic disease. No acute intracranial abnormality seen. I personally reviewed the CT of the head and there is no acute or subacute ischemia and there is no mass effect and there is no bleed. Patient has bilateral frontal atrophy and questionably the more atrophy than age. EKG is reported as sinus bradycardia. Left axis deviation. EEG: Is normal. No focal slowing, epileptiform discharges or seizure on the EEG. - Labs CBC & Chem 7: 08/28/22 06:28 08/28/22 06:28 Labs: Abnormal Lab Results - Last 24 Hours (Table) 08/28/22 08/28/22 Range/Units 06:28 06:28 RBC 3.76 L (4.30-5.90) m/uL MCV 104.1 H (80.0-100.0) fL MCH 35.7 H (25.0-35.0) pg Creatinine 0.57 L (0.66-1.25) mg/dL AST 105 H (17-59) U/L ALT 99 H (4-49) U/L Assessment and Plan Assessment: Near syncope and it appears possibly due to his hypotensive episode (at [facility] heart blood pressure was 80's/50's and thinks was given medication according to him since it was elevated) and possible symptomatic bradycardia Possibly symptomatic bradycardia History of reported seizures disorder one episode and stated due to medication withdrawal (does not remember medications he was on but stated was at least 2 years ago or longer). Hypertension Hyperlipidemia Alcohol use Plan: CT of the head is reported as moderate volume loss overlying the bilateral cerebral convexity. Mild burden of chronic small vessel ischemic disease. No acute intracranial abnormality seen. I personally reviewed the CT of the head and there is no acute or subacute ischemia and there is no mass effect and there is no bleed. Patient has bilateral frontal atrophy and questionably the more atrophy than age. There are many factors possibly that can cause atrophy and one is due to his significant alcohol use. Workup as outpatient neurologist. Nothing urgent as an inpatient. Cardiology is consulted Continue thiamine 100mg daily. We'll defer the rest of medical management to the primary team Recommend patient to follow-up with patient as outpatient within 2-3 weeks. The plan is discussed with patient and his nurse. There is no further neurological work-up. Will sign off. Please reconsult if needed. Time with Patient: Less than 30
--- NOTE | 2022-08-28 11:04 | P.PN ---
Subjective Progress Note Date: 08/28/22 History of present illness: This is a 62-year-old male with past history of SVT status post ablation done at [facility] with subsequent episode of SVT 2, hypertension, alcohol abuse. We have been asked to see the patient regarding hypertension and bradycardia. Patient is currently at [facility] for alcohol rehabilitation and lives in the [facility]. His last oral intake was 3 weeks ago. Patient states that around 3:30 in the morning he had a headache and went up to the nursing desk asked for his blood pressure to be checked which came back at 157/111. He was given Catapres 0.2 mg and Motrin and went back to sleep. He woke up again at 9:30 and he was feeling dizzy and disoriented and his blood pressure was 80/50. He was then sent into [facility] emergency center for evaluation. Patient also states he has had some left-sided chest pain that he feels when he takes a deep breath and is positional. He denies any injury to his chest. Telemetry is been a sinus rhythm 42-68. Blood pressure this morning is well controlled 135/87. Orthostatic vital signs negative. Patient quit smoking 27 years ago. His last alcohol intake was 3 weeks ago. EKG sinus bradycardia at 50 bpm Chest x-ray: Borderline to mild cardiomegaly. No definite acute process WBC 5.3, hemoglobin 12.9, platelet count 272. Potassium 3.7, BUN 15 and creatinine 0.5. Troponin negative 3. TSH 1.450. Home cardiac medications atorvastatin 20 mg at bedtime, clonidine 0.10.3 mg every 4 hours when necessary, Cardizem 60 mg twice daily, hydrochlorothiazide 12.5 mg before breakfast 08/28 Patient's heart rate has been well controlled in the 50s and 60s. Blood pressure has also been controlled since he has been hospitalized. Patient denies any symptoms of lightheadedness or dizziness. Repeat blood work reveals potassium 3.6, creatinine 0.57. CT of the chest and abdomen revealed LAD coronary artery calcifications, mild aneurysmal ascending aorta at 4.1 cm, COPD with mild emphysema, atelectasis. No acute process. Mild wall thickening of the gallbladder, possible bile duct m ildly dilated, hepatomegaly with underlying fatty infiltration, splenomegaly. Physical examination: Gen: This is a 62-year-old male patient resting in the bed and appears to be comfortable and in no acute distress VS: reviewed HEENT: Head is atraumatic, normocephalic. Pupils equal, round. Sclerae is anicteric. NECK: Supple. No JVD. No lymphadenopathy. No thyromegaly. LUNGS: Clear to auscultation. No wheezes or rhonchi. No intercostal retractions. HEART: Regular rate and rhythm. No murmur. ABDOMEN: Soft. Bowel sounds are present. No masses. No tenderness. EXTREMITIES: No pedal edema. No calf tenderness. NEUROLOGICAL: Patient is awake, alert and oriented x3. Cranial nerves 2 through 12 are grossly intact. Assessment: Hypotension following Catapres administration Bradycardia, asymptomatic SVT status post ablation 2 years ago at [facility] Hyperlipidemia Alcohol abuse Plan: Continue Cardizem 30 mg 3 times daily Continue other cardiac medications Further recommendations to follow based upon clinical course Thank you kindly for this consultation. Nurse practitioner note has been reviewed, I agree with documented findings and plan of care. Patient was seen and examined. Objective - Vital Signs Vital signs: Vital Signs Temp 98.4 F 08/28/22 08:37 Pulse 60 08/28/22 08:37 Resp 16 08/28/22 08:37 BP 128/79 08/28/22 08:37 Pulse Ox 98 08/28/22 08:37 FiO2 21 08/26/22 21:31 Intake & Output 08/27/22 08/28/22 08/28/22 18:59 06:59 18:59 Intake Total 730 500 Balance 730 500 Intake: Oral 730 500 Other: Voiding Method Toilet # Voids 2 - Labs CBC & Chem 7: 08/28/22 06:28 08/28/22 06:28 Labs: Abnormal Lab Results - Last 24 Hours (Table) 08/28/22 08/28/22 Range/Units 06:28 06:28 RBC 3.76 L (4.30-5.90) m/uL MCV 104.1 H (80.0-100.0) fL MCH 35.7 H (25.0-35.0) pg Creatinine 0.57 L (0.66-1.25) mg/dL AST 105 H (17-59) U/L ALT 99 H (4-49) U/L
[2022-08-28 11:34] LABS: Hepatitis A Antibody IgM Nonreactive (Nonreactive); Hepatitis B Core IgM Nonreactive (Nonreactive); Hepatitis B Surface Antigen Nonreactive (Nonreactive); Hepatitis C IgG Antibody Nonreactive (Nonreactive)
[2022-08-28] MEDS: ACETAMINOPHEN TAB 325 MG TAB PO PRN (14:33)
--- NOTE | 2022-08-28 20:48 | NM ---
EXAMINATION TYPE: NM hepatobiliary w CCK DATE OF EXAM: 08/28/2022 COMPARISON: None HISTORY: TECHNIQUE: After the intravenous administration of 5.1 mCi Tc 99m Mebrofenin hepatobiliary scintigrap hy is performed. Immediate images post injection. FINDINGS: There is satisfactory initial accumulation of tracer by the liver. The gallbladder is visualized wit hin 32 minutes. The small bowel activity is noted within 7 minutes minutes. At one hour CCK was adm inistered, patient was injected with 1.5 mcg of Kinevac, and gallbladder ejection fraction is calcula franky at 88 %, in the normal range. Therefore there is no scintigraphic evidence of cystic or common b ile duct obstruction to suggest acute cholecystitis or gallbladder dyskinesia. There is no focal live r defect. IMPRESSION: Normal hepatobiliary scan. Normal gallbladder ejection fraction.
[2022-08-28] MEDS: ATORVASTATIN 20 MG TAB PO SCH (21:18)
[2022-08-28] MEDS: QUEtiapine 25 MG TAB PO SCH (21:19)
[2022-08-29] MEDS: ACETAMINOPHEN TAB 325 MG TAB PO PRN ×4 (00:36→23:48)
[2022-08-29] MEDS: TEMAZEPAM 15 MG CAP PO PRN ×2 (00:40→23:49)
--- NOTE | 2022-08-29 06:23 | P.PN ---
Subjective Progress Note Date: 08/29/22 Principal diagnosis: Hypertension This is a 62-year-old male with past history of SVT status post ablation done at [facility] with subsequent episode of SVT 2, hypertension, alcohol abuse. We have been asked to see the patient regarding hypertension and bradycardia. Patient is currently at [facility] for alcohol rehabilitation and lives in the [facility]. His last oral intake was 3 weeks ago. Patient states that around 3:30 in the morning he had a headache and went up to the nursing desk asked for his blood pressure to be checked which came back at 157/ 111. He was given Catapres 0.2 mg and Motrin and went back to sleep. He woke up again at 9:30 and he was feeling dizzy and disoriented and his blood pressure was 80/50. He was then sent into [facility] emergency center for evaluation. Patient also states he has had some left-sided chest pain that he feels when he takes a deep breath and is positional. He denies any injury to his chest. Telemetry is been a sinus rhythm 42-68. Blood pressure this morning is well controlled 135/87. Orthostatic vital signs negative. Patient quit smoking 27 years ago. His last alcohol intake was 3 weeks ago. EKG sinus bradycardia at 50 bpm Chest x-ray: Borderline to mild cardiomegaly. No definite acute process WBC 5.3, hemoglobin 12.9, platelet count 272. Potassium 3.7, BUN 15 and creatinine 0.5. Troponin negative 3. TSH 1.450. Home cardiac medications atorvastatin 20 mg at bedtime, clonidine 0.10.3 mg every 4 hours when necessary, Cardizem 60 mg twice daily, hydrochlorothiazide 12.5 mg before breakfast 08/28 Patient's heart rate has been well controlled in the 50s and 60s. Blood pressure has also been controlled since he has been hospitalized. Patient denies any symptoms of lightheadedness or dizziness. Repeat blood work reveals potassium 3.6, creatinine 0.57. CT of the chest and abdomen revealed LAD coronary artery calcifications, mild aneurysmal ascending aorta at 4.1 cm, COPD with mild emphysema, atelectasis. No acute process. Mild wall thickening of the gallbladder, possible bile duct mildly dilated, hepatomegaly with underlying fatty infiltration, splenomegaly. August 292022 The patient was seen this morning. The pressure continues to be elevated and consistent with a stage II hypertension. I am going to add hydrochlorothiazide to the current medical regimen. Meanwhile continue the current dose of Cardizem by mouth. The echo revealed normal biventricular systolic function was no significant valvular abnormalities. The examination is consistent with a regular rhythm with a systolic murmur and clear breathing sounds bilaterally and no lower ex images edema noted. Assessment: Stage II hypertension History of alcohol use SVT status post ablation Plan: Continue the current medical regimen Add hydrochlorothiazide to the current medical regimen Follow-up with the patient Objective - Vital Signs Vital signs: Vital Signs Temp 97.6 F 08/29/22 04:00 Pulse 58 L 08/29/22 04:00 Resp 16 08/29/22 04:00 BP 146/89 08/29/22 04:00 Pulse Ox 97 08/29/22 04:00 FiO2 21 08/26/22 21:31 Intake & Output 08/28/22 08/28/22 08/29/22 06:59 18:59 06:59 Intake Total 500 236 Balance 500 236 Intake: Oral 500 236 Other: Voiding Method Toilet Toilet Toilet # Voids 2 1 1 - Labs CBC & Chem 7: 08/28/22 06:28 08/28/22 06:28 Labs: Abnormal Lab Results - Last 24 Hours (Table) 08/28/22 08/28/22 Range/Units 06:28 06:28 RBC 3.76 L (4.30-5.90) m/uL MCV 104.1 H (80.0-100.0) fL MCH 35.7 H (25.0-35.0) pg Creatinine 0.57 L (0.66-1.25) mg/dL AST 105 H (17-59) U/L ALT 99 H (4-49) U/L
[2022-08-29] MEDS: SODIUM CHLORIDE 0.9% 1,000 ML IV SCH (08:06)
[2022-08-29] MEDS: MULTIVITAMINS, THERA 1 EACH TAB PO SCH (08:11)
[2022-08-29] MEDS: DILTIAZEM ORAL 30 MG TAB PO SCH ×3 (08:11→21:08)
[2022-08-29] MEDS: THIAMINE 100 MG TAB PO SCH (08:11)
[2022-08-29] MEDS: FOLIC ACID 1 MG TAB PO SCH (08:11)
[2022-08-29] MEDS: ESCITALOPRAM 20 MG TAB PO SCH (08:11)
[2022-08-29] MEDS: traMADol 50 MG TAB PO PRN ×2 (09:23→15:41)
[2022-08-29] MEDS: hydroCHLOROthiazide 25 MG TAB PO SCH (11:12)
--- NOTE | 2022-08-29 14:44 | P.GSCN ---
History of Present Illness Consult date: 08/29/22 History of present illness: REASON FOR CONSULTATION: Cholecystitis HISTORY OF PRESENT ILLNESS: The patient is a 62 year old male who reports presenting to the emergency room due to Hypertension hypotension. He had lightheadedness and syncope. Patient reported intermittent chest pain. A full cardiology workup was performed. Patient reports having a fall several days ago with left-sided chest pain. Denies chest pain today. Denies abdominal pain. In fact, he tolerated beef stroganoff and broccoli. No reports of nausea and vomiting. Multiple diagnostic studies were performed in this gallbladder. General surgery is consulted due to abnormal gallbladder studies for possibility of cholecystitis. PAST MEDICAL HISTORY: See list and reviewed PAST SURGICAL HISTORY: See list and reviewed MEDICATIONS: See list and reviewed ALLERGIES: See list and reviewed SOCIAL HISTORY: See list and reviewed FAMILY HISTORY: See list and reviewed REVIEW OF ORGAN SYSTEMS: CONSTITUTIONAL: No fevers or chills. No recent weight loss. Body mass index normal, BMI 22.0. EYES: Denies any trouble with vision. No glasses. HEENT: No difficulties with hearing. No nosebleeds. No difficulty swallowing. RESPIRATORY: Denies pneumonia. Denies any troubles with breathing or dyspnea on exertion. Has obstructive sleep apnea. CARDIOVASCULAR: Has hypertensive heart disease. Has hyperlipidemia. GASTROINTESTINAL: Denies fatty food intolerance. Denies change in bowel habits and gas bloat. Past alcohol abuse. GENITOURINARY: Denies any blood in urine or increased urinary frequency. NEUROLOGICAL: Denies any numbness or tingling along the distal extremities. H istory of seizure disorder. MUSCULOSKELETAL: Denies any back pain, stiffness or joint arthritis. SKIN: No current skin cancer. No rash. PSYCHIATRIC: Denies current depression or suicidal thoughts. Has anxiety disorder. Has depressive disorder. ENDOCRINE: Denies current thyroid disorders. Denies any blood sugar glucose intolerance. HEME/LYMPHATIC: Denies any lumps and bumps around the neck. No recent deep venous thrombosis. ALLERGY/IMMUNOLOGY: No immunoglobulin therapy. No immune deficiencies. BREAST: Denies current breast lumps, pain or nipple discharge. PHYSICAL EXAM: VITALS: Reviewed CONSTITUTIONAL: Well developed and in no acute distress. EYES: Conjuctivae without sclera icterus. Extraocular movements grossly intact. HEAD, EARS, NOSE, THROAT: Moist buccal mucosa. Head is atraumatic, normocephalic. Hears conversational speech. No nasal drainage. NECK: Supple. No JV distention. No thyroidomegaly. RESPIRATORY: Non-labored respirations and equal bilateral excursions. No gross wheezes. CARDIOVASCULAR: Palpable 2+ radial pulses. ABDOMEN: Nontender. LYMPH: No neck lymphadenopathy. MUSCULOSKELETAL: No clubbing cyanosis or edema. SKIN: Warm and well perfused with good skin turgor. NEUROLOGIC: Cranial nerves II through XII grossly intact. No focal or lateralizing signs. PSYCH: Appropriate affect. Alert and oriented to person, place and time. Displays appropriate insight. CLINCAL LABS: Reviewed. AST and ALT elevated with mild transient downward in 24 hours. WBC within normal limits, no leukocytosis. IMAGING: Independently reviewed. Ultrasound of the gallbladder independent review demonstrates gallbladder wall thickening 0.68 cm. No presence of gall stones. This is my independent interpretation. CT chest abdomen independently reviewed demonstrates dilated gallbladder. No inflammatory changes along the gallbladder. No evidence of bowel obstruction or free air. This is my independent interpretation. Nuclear HIDA scan independently reviewed with ejection fraction 88% without biliary dyskinesia, no cystic duct obstruction or acute cholecystitis. This is my independent interpretation RADIOLOGY: Report reviewed. Ultrasound of gallbladder with hepatomegaly and hydrops gallbladder. CT chest and abdomen demonstrates hepatomegaly, aneurysmal dilation of abdominal aorta 4.1 cm, hydrops gallbladder with splenomegaly Nuclear HIDA scan demonstrates normal ejection fraction, normal study. ASSESSMENT: 1. Abnormal gallbladder ultrasound and computed tomography scan for gallbladder disorder 2. Fatty liver disease with past history of alcohol abuse disorder 3. Syncopal episode 4. Hypertensive heart disease 5. History of seizure disorder PLAN: 1. No evidence of acute cholecystitis per HIDA scan. No acute surgical intervention needed at this time 2. Diet as tolerated 3. Stable for discharge once medically stable ADVANCE DIRECTIVE: Thank you for this kind consultation. Past Medical History Past Medical History: Hyperlipidemia, Hypertension, Seizure Disorder, Sleep Apnea/CPAP/BIPAP History of Any Multi-Drug Resistant Organisms: None Reported Past Surgical History: Tonsillectomy Additional Past Surgical History / Comment(s): heart ablation Past Anesthesia/Blood Transfusion Reactions: No Reported Reaction Smoking Status: Former smoker Medications and Allergies Home Medications Medication Instructions Recorded Confirmed Type Acetaminophen Tab [Tylenol] 650 mg PO Q4H PRN 08/26/22 08/26/22 History Atorvastatin [Lipitor] 20 mg PO HS 08/26/22 08/26/22 History Calcium Carb/Mag Ox/Zinc Sulf 1 tab PO TID PRN 08/26/22 08/26/22 History [[id number] 334-134-5 mg Tab] Chlorpheniramine Maleate 4 mg PO Q4H PRN 08/26/22 08/26/22 History [Chlor-Trimeton] Escitalopram [Lexapro] 20 mg PO DAILY 08/26/22 08/26/22 History Folic Acid 1 mg PO DAILY 08/26/22 08/26/22 History Ibuprofen [Motrin Ib] 600 mg PO Q6H PRN 08/26/22 08/26/22 History LORazepam [Ativan] See Taper PO DIRECTED 08/26/22 08/26/22 History Multivitamins, Thera [Multivitamin 1 tab PO DAILY 08/26/22 08/26/22 History (formulary)] Mylanta 30 ml PO Q4H PRN 08/26/22 08/26/22 History QUEtiapine FUMARATE [SEROquel] 25 mg PO HS 08/26/22 08/26/22 History Thiamine [Vitamin B-1] 100 mg PO DAILY 08/26/22 08/26/22 History cloNIDine HCL [Catapres] 0.1 - 0.3 mg PO Q4H PRN 08/26/22 08/26/22 History dilTIAZem HCL 60 mg PO BID 08/26/22 08/26/22 History hydroCHLOROthiazide 12.5 mg PO AC-BRKFST 08/26/22 08/26/22 History ondansetron HCL [Zofran] 8 mg PO Q6H PRN 08/26/22 08/26/22 History Allergies Allergy/AdvReac Type Severity Reaction Status Date / Time No Known Allergies Allergy Verified 08/26/22 14:35 Surgical - Exam Vital Signs Temp Pulse Resp BP Pulse Ox 98 F 48 L 16 124/84 98 08/26/22 11:18 08/26/22 11:18 08/26/22 11:18 08/26/22 11:18 08/26/22 11:18 Results - Labs 08/28/22 06:28 08/28/22 06:28
[2022-08-29] MEDS: QUEtiapine 25 MG TAB PO SCH (21:08)
[2022-08-29] MEDS: ATORVASTATIN 20 MG TAB PO SCH (21:08)
--- NOTE | 2022-08-29 23:53 | PN ---
PROGRESS NOTE DATE OF SERVICE: 08/28/2022 SUBJECTIVE: Ordered a CAT scan, which shows dilated gallbladder with a surgical consult. HIDA scan has been ordered today. Neurologically, he has been cleared. we held his Catapres Cardizem as his blood pressure and pulse have been good. When clears him, possibly go back to rehab. OBJECTIVE: CARDIOVASCULAR: S1, S2. LUNGS: Clear. GI: Soft. HEMATOLOGY: Negative for Homans. PSYCH: Fair mood and affect. ASSESSMENT: Dilated gallbladder. HIDA scan ordered. Hypertension with bradycardia. Catapres is on hold. Calcium channel blockers are controlling his heart rate, which is in the 60s to 70s. He appears more stable today. HIDA scan has been ordered. Surgical consult pending. MMODL / IJN: [id number] /
[2022-08-30] MEDS: traMADol 50 MG TAB PO PRN ×2 (00:29→07:56)
[2022-08-30] MEDS: SODIUM CHLORIDE 0.9% 1,000 ML IV SCH ×2 (02:02→08:47)
--- NOTE | 2022-08-30 06:26 | P.PN ---
Subjective Progress Note Date: 08/30/22 Principal diagnosis: Hypertension This is a 62-year-old male with past history of SVT status post ablation done at [facility] with subsequent episode of SVT 2, hypertension, alcohol abuse. We have been asked to see the patient regarding hypertension and bradycardia. Patient is currently at [facility] for alcohol rehabilitation and lives in the [facility]. His last oral intake was 3 weeks ago. Patient states that around 3:30 in the morning he had a headache and went up to the nursing desk asked for his blood pressure to be checked which came back at 157/ 111. He was given Catapres 0.2 mg and Motrin and went back to sleep. He woke up again at 9:30 and he was feeling dizzy and disoriented and his blood pressure was 80/50. He was then sent into [facility] emergency center for evaluation. Patient also states he has had some left-sided chest pain that he feels when he takes a deep breath and is positional. He denies any injury to his chest. Telemetry is been a sinus rhythm 42-68. Blood pressure this morning is well controlled 135/87. Orthostatic vital signs negative. Patient quit smoking 27 years ago. His last alcohol intake was 3 weeks ago. EKG sinus bradycardia at 50 bpm Chest x-ray: Borderline to mild cardiomegaly. No definite acute process WBC 5.3, hemoglobin 12.9, platelet count 272. Potassium 3.7, BUN 15 and creatinine 0.5. Troponin negative 3. TSH 1.450. Home cardiac medications atorvastatin 20 mg at bedtime, clonidine 0.10.3 mg every 4 hours when necessary, Cardizem 60 mg twice daily, hydrochlorothiazide 12.5 mg before breakfast 08/28 Patient's heart rate has been well controlled in the 50s and 60s. Blood pressure has also been controlled since he has been hospitalized. Patient denies any symptoms of lightheadedness or dizziness. Repeat blood work reveals potassium 3.6, creatinine 0.57. CT of the chest and abdomen revealed LAD coronary artery calcifications, mild aneurysmal ascending aorta at 4.1 cm, COPD with mild emphysema, atelectasis. No acute process. Mild wall thickening of the gallbladder, possible bile duct mildly dilated, hepatomegaly with underlying fatty infiltration, splenomegaly. August 292022 The patient was seen this morning. The pressure continues to be elevated and consistent with a stage II hypertension. I am going to add hydrochlorothiazide to the current medical regimen. Meanwhile continue the current dose of Cardizem by mouth. The echo revealed normal biventricular systolic function was no significant valvular abnormalities. The examination is consistent with a regular rhythm with a systolic murmur and clear breathing sounds bilaterally and no lower ex images edema noted. August 302022 The patient was seen and evaluated this morning. He is asymptomatic beside complaining of some headache which can be addressed by the primary care team. The pressure has been under excellent control after we added heart I to the current medical regimen. From the cardiac standpoint of view, the patient can be discharged. Assessment: Stage II hypertension History of alcohol use SVT status post ablation Plan: Continue the current medical regimen The pressure is controlled after we added hydrochlorothiazide The patient can be discharged home Objective - Vital Signs Vital signs: Vital Signs Temp 97.8 F 08/30/22 04:00 Pulse 58 L 08/30/22 04:00 Resp 16 08/30/22 04:00 BP 114/74 08/30/22 04:00 Pulse Ox 97 08/30/22 04:00 FiO2 21 08/26/22 21:31 Intake & Output 08/29/22 08/29/22 08/30/22 06:59 18:59 06:59 Intake Total 354 Balance 354 Intake: Oral 354 Other: Voiding Method Toilet Toilet Toilet # Voids 1 2 1 - Labs CBC & Chem 7: 08/28/22 06:28 08/28/22 06:28
[2022-08-30] MEDS: MULTIVITAMINS, THERA 1 EACH TAB PO SCH (07:56)
[2022-08-30] MEDS: DILTIAZEM ORAL 30 MG TAB PO SCH (07:56)
[2022-08-30] MEDS: THIAMINE 100 MG TAB PO SCH (07:56)
[2022-08-30] MEDS: FOLIC ACID 1 MG TAB PO SCH (07:56)
[2022-08-30] MEDS: ESCITALOPRAM 20 MG TAB PO SCH (07:56)
[2022-08-30] MEDS: hydroCHLOROthiazide 25 MG TAB PO SCH (07:56)
[2022-08-30 08:00] VITALS: RESP 18; TEMP 98.1
[2022-08-30] MEDS: ACETAMINOPHEN TAB 325 MG TAB PO PRN (11:52)
[2022-08-30 12:17] VITALS: BP 128/80; PULSE 53
--- NOTE | 2022-08-30 16:51 | P.DS ---
Providers Date of admission: 08/26/22 14:25 Expected date of discharge: 08/30/22 Attending physician: Shilo Rapp Consults: 08/26/22 14:27 Consult Physician Routine Consulting Provider: Ez Forrest Consult Reason/Comments: symptomatic bradycardia Do you want consulting provider notified?: Yes 08/26/22 17:56 Consult Physician Routine Consulting Provider: Kory Grider Consult Reason/Comments: abnormal ct brain/near syncope Do you want consulting provider notified?: Yes 08/26/22 18:07 Consult Physician Urgent Consulting Provider: Ez Forrest Consult Reason/Comments: htn/tracie Do you want consulting provider notified?: Yes 08/28/22 15:33 Consult Physician Routine Consulting Provider: Damon Mejia Consult Reason/Comments: cholycystitis Do you want consulting provider notified?: Yes Primary care physician: Physician Nonsta Hospital Course: 62-year-old male with past history of SVT status post ablation done at [facility] with subsequent episode of SVT 2, hypertension, alcohol abuse. We have been asked to see the patient regarding hypertension and bradycardia. Patient is currently at [place] for alcohol rehabilitation and lives in the [facility]. His last oral intake was 3 weeks ago. Patient states that around 3:30 in the morning he had a headache and went up to the nursing desk asked for his blood pressure to be checked which came back at 157/111. He was given Catapres 0.2 mg and Motrin and went back to sleep. He woke up again at 9:30 and he was feeling dizzy and disoriented and his blood pressure was 80/50. He was then sent into [facility] emergency center for evaluation. Patient also states he has had some left-sided chest pain that he feels when he takes a deep breath and is positional. He denies any injury to his chest. Telemetry is been a sinus rhythm 42-68. Blood pressure this morning is well controlled 135/87. Orthostatic vital signs negative. Patient quit smoking 27 years ago. His last alcohol intake was 3 weeks ago. EKG sinus bradycardia at 50 bpm Chest x-ray: Borderline to mild cardiomegaly. No definite acute process WBC 5.3, hemoglobin 12.9, platelet count 272. Potassium 3.7, BUN 15 and creatinine 0.5. Troponin negative 3. TSH 1.450. Home cardiac medications atorvastatin 20 mg at bedtime, clonidine 0.10.3 mg every 4 hours when necessary, Cardizem 60 mg twice daily, hydrochlorothiazide 12.5 mg before breakfast 08/28 Patient's heart rate has been well controlled in the 50s and 60s. Blood pressure has also been controlled since he has been hospitalized. Patient denies any symptoms of lightheadedness or dizziness. Repeat blood work reveals potassium 3.6, creatinine 0.57. CT of the chest and abdomen revealed LAD coronary artery calcifications, mild aneurysmal ascending aorta at 4.1 cm, COPD with mild emphysema, atelectasis. No acute process. Mild wall thickening of the gallbladder, possible bile duct mildly dilated, hepatomegaly with underlying fatty infiltration, splenomegaly. August 292022 The patient was seen this morning. The pressure continues to be elevated and consistent with a stage II hypertension. I am going to add hydrochlorothiazide to the current medical regimen. Meanwhile continue the current dose of Cardizem by mouth. The echo revealed normal biventricular systolic function was no significant valvular abnormalities. The examination is consistent with a regular rhythm with a systolic murmur and clear breathing sounds bilaterally and no lower ex images edema noted. August 302022 The patient was seen and evaluated this morning. He is asymptomatic beside complaining of some headache which can be addressed by the primary care team. The pressure has been under excellent control after we added heart I to the current medical regimen. Patient remained stable and has been cleared for discharge by cardiology service Patient Condition at Discharge: Fair Plan - Discharge Summary Discharge Rx Participant: No New Discharge Prescriptions: New hydroCHLOROthiazide [Hydrodiuril] 25 mg PO DAILY 30 Days #30 tab Diltiazem Oral [Cardizem*] 30 mg PO TID 30 Days #90 tab Continue ondansetron HCL [Zofran] 8 mg PO Q6H PRN PRN Reason: Nausea Chlorpheniramine Maleate [Chlor-Trimeton] 4 mg PO Q4H PRN PRN Reason: Allergy Symptoms Acetaminophen Tab [Tylenol] 650 mg PO Q4H PRN PRN Reason: Pain Or Fever > 100.5 Calcium Carb/Mag Ox/Zinc Sulf [Ioq-Rld-Fhfr 334-134-5 mg Tab] 1 tab PO TID PRN PRN Reason: cramps Thiamine [Vitamin B-1] 100 mg PO DAILY QUEtiapine FUMARATE [SEROquel] 25 mg PO HS Multivitamins, Thera [Multivitamin (formulary)] 1 tab PO DAILY Atorvastatin [Lipitor] 20 mg PO HS Folic Acid 1 mg PO DAILY Escitalopram [Lexapro] 20 mg PO DAILY Mylanta 30 ml PO Q4H PRN PRN Reason: Gi Upset Discontinued cloNIDine HCL [Catapres] 0.1 - 0.3 mg PO Q4H PRN PRN Reason: BP >160/100 hydroCHLOROthiazide 12.5 mg PO AC-BRKFST dilTIAZem HCL 60 mg PO BID Ibuprofen [Motrin Ib] 600 mg PO Q6H PRN PRN Reason: Pain Or Fever > 100.5 LORazepam [Ativan] See Taper PO DIRECTED Discharge Medication List Acetaminophen Tab [Tylenol] 650 mg PO Q4H PRN 08/26/22 [History] Atorvastatin [Lipitor] 20 mg PO HS 08/26/22 [History] Calcium Carb/Mag Ox/Zinc Sulf [Dds-Rxk-Svan 334-134-5 mg Tab] 1 tab PO TID PRN 08/26/22 [History] Chlorpheniramine Maleate [Chlor-Trimeton] 4 mg PO Q4H PRN 08/26/22 [History] Escitalopram [Lexapro] 20 mg PO DAILY 08/26/22 [History] Folic Acid 1 mg PO DAILY 08/26/22 [History] Multivitamins, Thera [Multivitamin (formulary)] 1 tab PO DAILY 08/26/22 [History] Mylanta 30 ml PO Q4H PRN 08/26/22 [History] QUEtiapine FUMARATE [SEROquel] 25 mg PO HS 08/26/22 [History] Thiamine [Vitamin B-1] 100 mg PO DAILY 08/26/22 [History] ondansetron HCL [Zofran] 8 mg PO Q6H PRN 08/26/22 [History] Diltiazem Oral [Cardizem*] 30 mg PO TID 30 Days #90 tab 08/29/22 [Rx] hydroCHLOROthiazide [Hydrodiuril] 25 mg PO DAILY 30 Days #30 tab 08/29/22 [Rx] Follow up Appointment(s)/Referral(s): Shilo Rapp MD [STAFF PHYSICIAN] - 1 Week (Office closed--please call for follow up appointment on Wednesday.) Nonstaff,Physician [Primary Care Provider] - 1-2 days (Duplicate--ignore.) Patient Instructions/Handouts: Bradycardia (DC) Activity/Diet/Wound Care/Special Instructions: You have been receiving Tramadol 50 mg by mouth every 6 hours as needed for pain at the hospital along with Tylenol 650mg by mouth every 6 hours as needed for pain. Please speak with the [place] medical staff if headache continues for pain control per Dr. Rapp's instructions. Discharge Disposition: HOME SELF-CARE
== END 2022-08-30 12:19 | disposition home or self-care (01) | DRG 310 ==
LOC: EC 11:12 → 3SCARD 14:25
PROVIDERS: ADMIT Family Medicine; ATTEND Family Medicine
DX: R00.1 Bradycardia, unspecified (principal); I95.2 Hypotension due to drugs; T46.5X5A Adverse effect of other antihypertensive drugs, initial encounter; G31.9 Degenerative disease of nervous system, unspecified; G40.909 Epilepsy, unspecified, not intractable, without status epilepticus; I11.9 Hypertensive heart disease without heart failure; I25.10 Atherosclerotic heart disease of native coronary artery without angina pectoris; F10.10 Alcohol abuse, uncomplicated; E78.5 Hyperlipidemia, unspecified; J43.9 Emphysema, unspecified; K76.0 Fatty (change of) liver, not elsewhere classified; Z87.891 Personal history of nicotine dependence; Z79.899 Other long term (current) drug therapy; G47.30 Sleep apnea, unspecified
CPT/HCPCS: 36415; 70450; 71045; 71250; 74150; 76700; 78227; 80053; 80074; 81003; 84443; 84484; 85025; 93005; 93306; 94760; 95816; 96360; 96361; 99285